=== PATIENT | female | born 1960 | race Caucasian/White ===

== ENCOUNTER → 2020-05-09 08:33 | Outpatient (CLI) | payer OTHER ==
--- NOTE | 2020-05-11 11:00 | EC ---
PATIENT:RICHARD LOPEZ DATE OF SERVICE: 05/09/20 SEX: F MEDICAL RECORD: [id number] DATE OF : 56 LOCATION:D[facility] AGE OF PATIENT: 59 ADMISSION DATE: 05/09/20 REFERRING PHYSICIAN: INTERPRETING PHYSICIAN: AUBREY SAUNDERS MD ECHOCARDIOGRAM REPORT ECHO CHARGES 4 ECHO COMPLETE Date: 05/09/20 CLINICAL DIAGNOSIS: HX OF PALPITATIONS/PAC'S, ASSESS EF AND VALVES ECHOCARDIOGRAPHIC MEASUREMENTS (adult normal given) AC root (d.<3.7cm) 3.2 cm LV Septum d (<1.2 cm> 1.2 cm Valve Excursion 1.8 cm LV Septum (systole) 1.3 cm Left Atria (s.<4.0cm> 3.1 cm LVPW d(<1.2cm) 1.1 cm RV (d.<2.3cm) 3.0 cm LVPW (sytole) 1.4 cm LV diastole(<5.6CM) 4.3 cm MV E-F(>70mm/sec) cm LV systole 2.9 cm LVOT Diameter 1.7 cm MV exc.(>10mm) 1.1 cm Est.ejection fraction (50-75%) % DOPPLER: LVIT cm/sec A 90.0 cm/sec E 61.0 cm/sec LA cm/sec RVSP 27 mmHg LVOT 106 cm/sec AOP1/2T 459 m/s Asc. 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 Mock TAPE# PACS Pericardial Effusion N DATE OF SERVICE: Adequate 2D, color-flow imaging, spectral Doppler, and M-Mode Borderline LVH. LV internal dimensions are normal. Wall motion is normal. EF is greater than or equal to 55%. Aortic valve is tricuspid. No evidence of stenosis by Doppler interrogation. Left atrium is normal. Mitral valve shows no prolapse. Trivial MR. Right-sided chambers are grossly normal. Trivial TR. TRANSINT:[id number] Voice Confirmation ID: [id number] DOCUMENT ID: [id number] ECHOCARDIOGRAM REPORT [id number] RICHARD LOPEZ,AUBREY Osborn MD at 1100 CC: [id number] DICTATION DATE: 05/10/2043 NUTRITIONIST: 05/10/20 1312 DEP CLI 05/09/20 [place] [id number] [place] [id number]
== END | disposition home or self-care (01) ==
LOC: D.HCCECHO 08:30
PROVIDERS: ATTEND Internal Medicine Interventional Cardiology
DX: I20.9 Angina pectoris, unspecified (principal)